=== PATIENT | female | born 1990 | race Caucasian/White ===

== ENCOUNTER 2021-02-28 22:51 | Emergency (ER) | payer OTHER ==
[~2021-02-28] VITALS: Ht 165.1 cm; Wt 113.4 kg
== END 2021-02-28 23:27 | disposition home or self-care (01) ==
LOC: ER 23:08
DX: I10 Essential (primary) hypertension (principal); E61.1 Iron deficiency; F41.9 Anxiety disorder, unspecified
CPT/HCPCS: 93005; 99282